=== PATIENT | female | born 1995 | race Caucasian/White ===

== ENCOUNTER → 2017-03-30 | Outpatient (CLI) | payer BC ==
--- NOTE | 2017-03-30 13:49 | XR ---
EXAMINATION TYPE: XR ankle complete LT DATE OF EXAM ORDERED: 03/30/2017 HISTORY: M25.572 Pain in left ankle and joints of left foot. COMPARISON: None. FINDINGS: No fracture, dislocation or ankle joint effusion is seen. IMPRESSION: NORMAL LEFT ANKLE.
== END | disposition home or self-care (01) ==
LOC: RADXRMAIN 13:00
PROVIDERS: ATTEND Family Medicine
DX: M25.572 Pain in left ankle and joints of left foot (principal)

== ENCOUNTER 2020-05-15 15:07 | Emergency (ER) | payer BC ==
[2020-05-15] MEDS ORDERED: METOCLOPRAMIDE 5 MG/ML 2 ML VIAL IVP STA (15:32)
[2020-05-15] MEDS ORDERED: diphenhydrAMINE 50 MG/ML 1 ML VIAL IVP STA (15:32)
[2020-05-15] MEDS ORDERED: SODIUM CHLORIDE 0.9% 1,000 ML IV STA (15:32)
[2020-05-15] MEDS ORDERED: KETOROLAC 30 MG/ML 1 ML VIAL IVP STA (15:32)
[2020-05-15] MEDS ORDERED: SODIUM CHLORIDE 0.9% 500 ML 500 ML IV STA (15:32)
--- NOTE | 2020-05-15 15:43 | ED ---
Headache HPI - General Chief Complaint: Headache Stated Complaint: NVD/Headache- In quicker Time Seen by Provider: 05/15/20 15:21 Source: patient, RN notes reviewed Mode of arrival: ambulatory Limitations: no limitations - History of Present Illness Initial Comments: 25-year-old female presents emergency from chief complaint of a headache, nausea vomiting diarrhea. Patient states she's had a headache for proximal one week in the frontal sinus region. 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 Patient states that symptoms are worse when she leans forward she does admit that she has seasonal ALLERGY issues and nasal congestion. Patient denies any fevers or chills no neck pain or stiffness. Patient states she's had some light sensitivity no trauma. Denies any blood thinners. Patient states that she's had some intermittent nausea vomiting and diarrhea-type symptoms. No localized abdominal pain. She does take medication for GERD. Patient denies any sick contacts. Denies any melena, hematochezia, hematemesis or coffee-ground Emesis. Patient denies any chest pain or shortness of breath - Related Data Home Medications Medication Instructions Recorded Confirmed Albuterol Inhaler (Mhu) [Ventolin 1 - 2 puff INHALATION RT-Q6H PRN 08/30/15 04/26/16 Inhaler] Previous Rx's Medication Instructions Recorded acetaZOLAMIDE [Diamox] 250 mg PO TID #30 tablet 04/18/16 Ondansetron Odt [Zofran Odt] 4 mg PO Q8HR PRN #10 tab 05/15/20 Allergies Allergy/AdvReac Type Severity Reaction Status Date / Time Fish Containing Products Allergy Anaphylaxis Verified 04/26/16 17:50 [Fish] Cephalosporins AdvReac Rash/Hives Verified 04/26/16 17:50 Review of Systems ROS Statement: Those systems with pertinent positive or pertinent negative responses have been documented in the HPI. ROS Other: All systems not noted in ROS Statement are negative. Past Medical History Past Medical History: Asthma, GERD/Reflux Additional Past Medical History / Comment(s): CSF leak History of Any Multi-Drug Resistant Organisms: None Reported Past Surgical History: No Surgical Hx Reported Additional Past Surgical History / Comment(s): sinus surgery 06/11 Past Anesthesia/Blood Transfusion Reactions: Motion Sickness Additional Past Anesthesia/Blood Transfusion Reaction / Comment(s): PT HAS NEVER RECEIVED ANESTHESIA Past Psychological History: No Psychological Hx Reported Smoking Status: Never smoker Past Alcohol Use History: Occasional Past Drug Use History: None Reported - Past Family History Mother Additional Family Medical History / Comment(s): nasal polyps Father Family Medical History: Cancer Additional Family Medical History / Comment(s): ESOPHAGEAL CANCER General Exam Limitations: no limitations General appearance: alert, in no apparent distress Head exam: Present: atraumatic, normocephalic, normal inspection, other (Tenderness of the frontal sinus) Eye exam: Present: normal appearance, PERRL, EOMI. Absent: scleral icterus, conjunctival injection, periorbital swelling ENT exam: Present: normal oropharynx, mucous membranes moist, TM's normal bilat erally, normal external ear exam Neck exam: Present: normal inspection, full ROM. Absent: tenderness, meningismus, lymphadenopathy Respiratory exam: Present: normal lung sounds bilaterally. Absent: respiratory distress, wheezes, rales, rhonchi, stridor Cardiovascular Exam: Present: normal rhythm, tachycardia, normal heart sounds. Absent: systolic murmur, diastolic murmur, rubs, gallop, clicks GI/Abdominal exam: Present: soft, normal bowel sounds. Absent: distended, tenderness, guarding, rebound, rigid Neurological exam: Present: alert, oriented X3, CN II-XII intact, reflexes normal, other (Finger to nose intact bilaterally without over shooting). Absent: motor sensory deficit Skin exam: Present: warm, dry, intact, normal color. Absent: rash Course Vital Signs 05/15/20 15:13 Temperature 98.7 F Pulse Rate 125 H Respiratory 20 Rate Blood Pressure 143/93 O2 Sat by Pulse 99 Oximetry Medical Decision Making - Medical Decision Making Patient was reevaluated resting comfortably in bed states her headache is greatly improved. Updated on results. Patient feels comfortable discharged. This most likely is a viral illness. Patient will be discharged Zofran and will follow-up with PCP tomorrow return parameters were discussed - Lab Data Result diagrams: 05/15/20 15:48 05/15/20 15:48 Lab Results 05/15/20 05/15/20 05/15/20 Range/Units 15:48 15:48 16:38 WBC 4.9 (3.8-10.6) k/uL RBC 4.81 (3.80-5.40) m/uL Hgb 13.9 (11.4-16.0) gm/dL Hct 41.7 (34.0-46.0) % MCV 86.9 (80.0-100.0) fL MCH 28.9 (25.0-35.0) pg MCHC 33.3 (31.0-37.0) g/dL RDW 13.0 (11.5-15.5) % Plt Count 199 (150-450) k/uL Neutrophils % (Manual) 54 % Band Neutrophils % 7 % Lymphocytes % (Manual) 32 % Monocytes % (Manual) 7 % Neutrophils # (Manual) 2.90 (1.3-7.7) k/uL Lymphocytes # (Manual) 1.57 (1.0-4.8) k/uL Monocytes # (Manual) 0.34 (0-1.0) k/uL Nucleated RBCs 0 (0-0) /100 WBC Manual Slide Review Performed RBC Morphology Normal Sodium 136 L (137-145) mmol/L Potassium 4.1 (3.5-5.1) mmol/L Chloride 104 (98-107) mmol/L Carbon Dioxide 25 (22-30) mmol/L Anion Gap 7 mmol/L BUN 10 (7-17) mg/dL Creatinine 0.71 (0.52-1.04) mg/dL Est GFR (CKD-EPI)AfAm >90 (>60 ml/min/1.73 sqM) Est GFR (CKD-EPI)NonAf >90 (>60 ml/min/1.73 sqM) Glucose 93 (74-99) mg/dL Calcium 9.3 (8.4-10.2) mg/dL Total Bilirubin 0.5 (0.2-1.3) mg/dL AST 70 H (14-36) U/L ALT 73 H (4-34) U/L Alkaline Phosphatase 92 (38-126) U/L Total Protein 6.6 (6.3-8.2) g/dL Albumin 4.0 (3.5-5.0) g/dL Lipase 72 (23-300) U/L Urine Color Yellow Urine Appearance Clear (Clear) Urine pH 6.0 (5.0-8.0) Ur Specific [place] 1.015 (1.001-1.035) Urine Protein Negative (Negative) Urine Glucose (UA) Negative (Negative) Urine Ketones Negative (Negative) Urine Blood Trace H (Negative) Urine Nitrite Negative (Negative) Urine Bilirubin Negative (Negative) Urine Urobilinogen <2.0 (<2.0) mg/dL Ur Leukocyte Esterase Negative (Negative) Urine RBC 2 (0-5) /hpf Urine WBC 1 (0-5) /hpf Ur Squamous Epith Cells 1 (0-4) /hpf Urine Bacteria Rare H (None) /hpf Urine Mucus Few H (None) /hpf Urine HCG, Qual (Not Detectd) 05/15/20 Range/Units 16:38 WBC (3.8-10.6) k/uL RBC (3.80-5.40) m/uL Hgb (11.4-16.0) gm/dL Hct (34.0-46.0) % MCV (80.0-100.0) fL MCH (25.0-35.0) pg MCHC (31.0-37.0) g/dL RDW (11.5-15.5) % Plt Count (150-450) k/uL Neutrophils % (Manual) % Band Neutrophils % % Lymphocytes % (Manual) % Monocytes % (Manual) % Neutrophils # (Manual) (1.3-7.7) k/uL Lymphocytes # (Manual) (1.0-4.8) k/uL Monocytes # (Manual) (0-1.0) k/uL Nucleated RBCs (0-0) /100 WBC Manual Slide Review RBC Morphology Sodium (137-145) mmol/L Potassium (3.5-5.1) mmol/L Chloride (98-107) mmol/L Carbon Dioxide (22-30) mmol/L Anion Gap mmol/L BUN (7-17) mg/dL Creatinine (0.52-1.04) mg/dL Est GFR (CKD-EPI)AfAm (>60 ml/min/1.73 sqM) Est GFR (CKD-EPI)NonAf (>60 ml/min/1.73 sqM) Glucose (74-99) mg/dL Calcium (8.4-10.2) mg/dL Total Bilirubin (0.2-1.3) mg/dL AST (14-36) U/L ALT (4-34) U/L Alkaline Phosphatase (38-126) U/L Total Protein (6.3-8.2) g/dL Albumin (3.5-5.0) g/dL Lipase (23-300) U/L Urine Color Urine Appearance (Clear) Urine pH (5.0-8.0) Ur Specific [place] (1.001-1.035) Urine Protein (Negative) Urine Glucose (UA) (Negative) Urine Ketones (Negative) Urine Blood (Negative) Urine Nitrite (Negative) Urine Bilirubin (Negative) Urine Urobilinogen (<2.0) mg/dL Ur Leukocyte Esterase (Negative) Urine RBC (0-5) /hpf Urine WBC (0-5) /hpf Ur Squamous Epith Cells (0-4) /hpf Urine Bacteria (None) /hpf Urine Mucus (None) /hpf Urine HCG, Qual Not Detected (Not Detectd) Disposition Clinical Impression: Headache, Nausea & vomiting Disposition: HOME SELF-CARE Condition: Stable Instructions (If sedation given, give patient instructions): Acute Headache (ED) Additional Instructions: Please return to the Emergency Department if symptoms worsen or any other concerns. Prescriptions: Ondansetron Odt [Zofran Odt] 4 mg PO Q8HR PRN #10 tab PRN Reason: Nausea Is patient prescribed a controlled substance at d/c from ED?: No Referrals: Cain Houser DO [Primary Care Provider] - 1-2 days Time of Disposition: 17:07
[2020-05-15 16:12] LABS: HCT 41.7 % (34.0-46.0); HGB 13.9 gm/dL (11.4-16.0); MCH 28.9 pg (25.0-35.0); MCHC 33.3 g/dL (31.0-37.0); MCV 86.9 fL (80.0-100.0); Platelet Count 199 k/uL (150-450); RBC 4.81 m/uL (3.80-5.40); WBC 4.9 k/uL (3.8-10.6)
[2020-05-15 16:13] LABS: ALT 73 U/L (4-34); AST 70 U/L (14-36); African American GFR (CKD) >90 (>60 ml/min/1.73 sqM); Alkaline Phosphatase 92 U/L (38-126); Anion Gap 7 mmol/L; Blood Urea Nitrogen 10 mg/dL (7-17); Calcium 9.3 mg/dL (8.4-10.2); Carbon Dioxide 25 mmol/L (22-30); Chloride 104 mmol/L (98-107); Glucose 93 mg/dL (74-99); Lipase 72 U/L (23-300); Non-African American GFR(CKD) >90 (>60 ml/min/1.73 sqM); Potassium 4.1 mmol/L (3.5-5.1); Sodium 136 mmol/L (137-145); Total Bilirubin 0.5 mg/dL (0.2-1.3); Total Protein 6.6 g/dL (6.3-8.2)
[2020-05-15 16:30] LABS: Band Neutrophils % 7 %; Lymphocytes # (M) 1.57 k/uL (1.0-4.8); Monocytes # (M) 0.34 k/uL (0-1.0); Neutrophils % (M) 54 %; Nucleated Red Blood Cells 0 /100 WBC (0-0); Total Cells Counted 100
--- NOTE | 2020-05-15 16:41 | CT ---
EXAMINATION TYPE: CT brain wo con DATE OF EXAM: 05/15/2020 COMPARISON: MRI brain April 17, 2016 HISTORY: LAM x1 week CT DLP: 1066.4 mGycm. Automated Exposure Control for Dose Reduction was Utilized. TECHNIQUE: CT scan of the head is performed without contrast. FINDINGS: There is no acute intracranial hemorrhage, mass effect, or midline shift identified. The ventricles and sulci are within normal limits in size. Leos-white matter differentiation is maintain ed. The globes are intact and the visualized sinuses are now grossly clear. IMPRESSION: No acute intracranial hemorrhage or midline shift is seen.
[2020-05-15 16:51] LABS: Appearance,Urine Clear (Clear); Bacteria,Urine Rare /hpf; Bilirubin,Urine Negative (Negative); Blood,Urine Trace (Negative); Color,Urine Yellow; Glucose,Urine (UA) Negative (Negative); Ketones,Urine Negative (Negative); Leukocyte Esterase,Urine Negative (Negative); Mucus,Urine Few /hpf; Nitrite,Urine Negative (Negative); Protein,Urine Negative (Negative); RBC,Urine 2 /hpf (0-5); Specific Gravity,Urine 1.015 (1.001-1.035); Squamous Epithelial Cell,Urine 1 /hpf (0-4); Urobilinogen,Urine <2.0 mg/dL (<2.0); WBC,Urine 1 /hpf (0-5)
[2020-05-15 17:21] VITALS: BP 136/88; PULSE 98; RESP 18; TEMP 98.8
== END 2020-05-15 17:21 | disposition home or self-care (01) ==
LOC: EC 15:07
DX: R51 Headache (principal); R11.2 Nausea with vomiting, unspecified; R19.7 Diarrhea, unspecified; Z20.828 Contact with and (suspected) exposure to other viral communicable diseases; J45.909 Unspecified asthma, uncomplicated; Z88.1 Allergy status to other antibiotic agents; Z91.013 Allergy to seafood
CPT/HCPCS: 36415; 80053; 83690; 85025; 81001; 81025; 70450; 99284; 96374; 96375 ×2; 96361; U0003; J1200; J2765; J1885